=== PATIENT | female | born 1960 | race Caucasian/White ===

== ENCOUNTER 2024-05-01 13:30 | Outpatient (REF) | payer MEDICARE, SELFPAY ==
[2024-05-01 16:32] LABS: ALT 32 U/L (14-59); AST 20 U/L (15-37); Albumin 4.3 g/dL (3.4-5.0); Alkaline Phosphatase 74 U/L (46-116); Anion Gap 10.6 mmol/L (3-11); BUN 19 mg/dL (7-18); Bilirubin, Total 0.41 mg/dL (0.2-1.0); CO2 28.4 mmol/L (21.0-32.0); CREATININE 0.9 mg/dL (0.55-1.02); Calcium 9.5 mg/dL (8.5-10.1); Calculated LDL 175 mg/dL (<100); Chloride 105 mmol/L (98-107); Cholesterol 282 mg/dL (<200); Estimated GFR 70.95 (mL/min/1.73m2); Glucose 87 mg/dL (74-106); HDL Cholesterol 68 mg/dL (40-60); Potassium 4.2 mmol/L (3.5-5.1); Sodium 144 mmol/L (136-145); Total Protein 7.9 g/dL (6.4-8.2); Triglyceride 197 mg/dL (<150)
[2024-05-02 10:56] LABS: HIV-1/2 Ag & Ab Screen Negative (Negative)
[2024-05-02 11:10] LABS: Hepatitis C Ab w Rflx HCV PCR Negative (Negative)
== END 2024-05-01 13:31 | disposition home or self-care (01) ==
LOC: NCHCN 13:30
PROVIDERS: PCP Family Medicine; Visit Provider Family Medicine
DX: Z11.4 Encounter for screening for human immunodeficiency virus [HIV] (principal)
CPT/HCPCS: 80053; 80061; 86803; 87389